=== PATIENT | female | born 1985 | race Two or more races ===

== ENCOUNTER → 2016-06-19 | Outpatient (REF) | payer BC ==
[2016-06-19 20:31] LABS: MEAN CORPUSCULAR HEMOGLOBIN 27.5 pg (27.0-33.0); MEAN CORPUSCULAR HGB CONC 32.3 g/dl (32.0-36.5); RED CELL DISTRIBUTION WIDTH 12.8 % (11.5-14.5); WHITE BLOOD COUNT 5.7 K/mm3 (4.0-10.0)
[2016-06-19 20:38] LABS: VITAMIN B12 LEVEL 742 PG/ML (247-911)
[2016-06-19 20:39] LABS: ALBUMIN/GLOBULIN RATIO 1.29 (1.00-1.93); ALKALINE PHOSPHATASE 114 U/L (45-117); ALT/SGPT 12 U/L (12-78); ANION GAP 8 MEQ/L (8-16); AST/SGOT 10 U/L (15-37); BILIRUBIN,TOTAL 0.3 MG/DL (0.2-1.0); BLOOD UREA NITROGEN 11 MG/DL (7-18); CALCIUM LEVEL 8.7 MG/DL (8.5-10.1); CARBON DIOXIDE LEVEL 29 MEQ/L (21-32); CHLORIDE LEVEL 104 MEQ/L (98-107); CHOLESTEROL LEVEL 173 MG/DL (<200); CREATININE FOR GFR 0.65 MG/DL (0.55-1.02); FERRITIN 17 NG/ML (8-252); FREE T4 0.99 NG/DL (0.76-1.46); GLOMERULAR FILTRATION RATE > 60.0 (>60); GLUCOSE, FASTING 101 MG/DL (70-105); POTASSIUM SERUM 3.7 MEQ/L (3.5-5.1); SODIUM LEVEL 141 MEQ/L (136-145); TOTAL PROTEIN 7.1 GM/DL (6.4-8.2); TRIGLYCERIDES LEVEL 118 MG/DL (<150)
== END ==
LOC: M SFHCADAM 12:20
PROVIDERS: ATTEND Family Medicine
DX: R10.12 Left upper quadrant pain (principal); Z98.84 Bariatric surgery status

== ENCOUNTER → 2016-06-19 | Outpatient (CLI) | payer BC ==
--- NOTE | 2016-06-19 14:32 | REP ---
Chest two views HISTORY: Left upper quadrant pain Comparison: None The lungs are clear. The heart is normal in size. The pulmonary vasculature is normal in appearance. The bony structure is intact. IMPRESSION: No acute disease. Signed by Eleuterio Singh MD 06/19/2016 02:23 P
--- NOTE | 2016-06-19 14:35 | REP ---
LUMBAR SPINE, FIVE VIEWS: HISTORY: Back pain. There is no acute fracture or subluxation. The L4-5 and L5-S1 intervertebral discs are decreased in height consistent with disc degeneration. The facet joints are normal in appearance. IMPRESSION: Degenerative change as described above. Signed by Eleuterio Singh MD 06/19/2016 02:38 P
== END ==
LOC: M ADAMS 13:24
PROVIDERS: ATTEND Family Medicine
DX: R10.12 Left upper quadrant pain (principal); M54.5 Low back pain; Z98.84 Bariatric surgery status

== ENCOUNTER 2017-04-13 12:41 | Emergency (ER) | payer BC ==
[2017-04-13] MEDS: NS 1,000 ML IV (13:36)
[2017-04-13 13:48] LABS: KETONE, URINE AUTO RFX NEGATIVE (NEGATIVE); LEUKOCYTE ESTERASE UR AUTO RFX NEGATIVE (NEGATIVE); MUCUS, URINE RFX SMALL (NEGATIVE); NITRITE, URINE AUTO RFX NEGATIVE (NEGATIVE); RBC, URINE AUTO RFX 1 /HPF (0-3); SPECIFIC GRAVITY UR AUTO RFX 1.023 (1.002-1.035); SQUAM EPITHELIAL CELL UR AURFX 0 /HPF (0-6); WBC, URINE AUTO RFX 0 /HPF (0-3)
[2017-04-13 13:51] LABS: BASO % 0.2 % (0.0-1.0); EOS # 0.1 10^3/uL (0.0-0.50); EOS % 1.6 % (0.0-3.0); LYMPH # 1.1 10^3/uL (1.5-4.5); MEAN CORPUSCULAR HEMOGLOBIN 26.7 pg (27.0-33.0); MEAN CORPUSCULAR HGB CONC 32.6 g/dl (32.0-36.5); MEAN CORPUSCULAR VOLUME 82.1 fl (80.0-96.0); MONO # 0.3 10^3/uL (0.0-0.8); MONO % 6.7 % (0.0-5.0); NEUTROPHILS % 66.5 % (36.0-66.0); PLATELET COUNT, AUTOMATED 132 10^3/uL (150-450); RED CELL DISTRIBUTION WIDTH 12.1 % (11.5-14.5); WHITE BLOOD COUNT 4.5 10^3/uL (4.0-10.0)
[2017-04-13 14:05] LABS: INR 0.89
[2017-04-13 14:23] LABS: ALBUMIN 3.9 GM/DL (3.2-5.2); ALBUMIN/GLOBULIN RATIO 1.08 (1.00-1.93); ALKALINE PHOSPHATASE 92 U/L (45-117); ALT/SGPT 16 U/L (12-78); AMYLASE 49 U/L (25-115); ANION GAP 6 MEQ/L (8-16); AST/SGOT 14 U/L (7-37); BILIRUBIN,DIRECT < 0.1 MG/DL (0.0-0.2); BILIRUBIN,TOTAL 0.2 MG/DL (0.2-1.0); BLOOD UREA NITROGEN 9 MG/DL (7-18); CALCIUM LEVEL 8.7 MG/DL (8.5-10.1); CARBON DIOXIDE LEVEL 31 MEQ/L (21-32); CHLORIDE LEVEL 105 MEQ/L (98-107); CREATININE FOR GFR 0.54 MG/DL (0.55-1.02); GLOMERULAR FILTRATION RATE > 60.0 (>60); GLUCOSE, FASTING 78 MG/DL (70-105); POTASSIUM SERUM 3.8 MEQ/L (3.5-5.1); SODIUM LEVEL 142 MEQ/L (136-145); TOTAL PROTEIN 7.5 GM/DL (6.4-8.2)
== END 2017-04-13 15:01 | disposition home or self-care (01) ==
LOC: M ED 12:41
DX: R16.1 Splenomegaly, not elsewhere classified (principal); R10.12 Left upper quadrant pain; R00.1 Bradycardia, unspecified; Z87.59 Personal history of other complications of pregnancy, childbirth and the puerperium; Z98.84 Bariatric surgery status
CPT/HCPCS: 76705

== ENCOUNTER → 2017-04-17 | Outpatient (REF) | payer BC ==
[2017-04-17 20:24] LABS: BASO % 0.5 % (0.0-1.0); EOS # 0.1 10^3/uL (0.0-0.50); EOS % 1.8 % (0.0-3.0); HEMATOCRIT 37.1 % (36.0-47.0); IMMATURE GRANULOCYTE % 0.5 % (0-0); LYMPH # 1.3 10^3/uL (1.5-4.5); LYMPH % 20.1 % (24.0-44.0); MEAN CORPUSCULAR HEMOGLOBIN 26.7 pg (27.0-33.0); MEAN CORPUSCULAR HGB CONC 32.3 g/dl (32.0-36.5); MEAN CORPUSCULAR VOLUME 82.4 fl (80.0-96.0); MONO # 0.3 10^3/uL (0.0-0.8); MONO % 4.8 % (0.0-5.0); NEUTROPHILS # 4.8 10^3/uL (1.8-7.7); NEUTROPHILS % 72.3 % (36.0-66.0); PLATELET COUNT, AUTOMATED 192 10^3/uL (150-450); RED CELL DISTRIBUTION WIDTH 11.9 % (11.5-14.5); RETIC HEMOGLOBIN EQUIVALENT 23.9 pg (24-36); RETICULOCYTE # 25.7 10^9/L (17-77); RETICULOCYTE % 0.6 % (0.5-1.5); WHITE BLOOD COUNT 6.6 10^3/uL (4.0-10.0)
[2017-04-17 20:46] LABS: ALBUMIN 3.6 GM/DL (3.2-5.2); ALBUMIN/GLOBULIN RATIO 1.03 (1.00-1.93); ALKALINE PHOSPHATASE 90 U/L (45-117); ALT/SGPT 12 U/L (12-78); ANION GAP 5 MEQ/L (8-16); AST/SGOT 13 U/L (7-37); BILIRUBIN,TOTAL 0.2 MG/DL (0.2-1.0); BLOOD UREA NITROGEN 11 MG/DL (7-18); CALCIUM LEVEL 8.6 MG/DL (8.5-10.1); CARBON DIOXIDE LEVEL 29 MEQ/L (21-32); CHLORIDE LEVEL 104 MEQ/L (98-107); CREATININE FOR GFR 0.54 MG/DL (0.55-1.02); GLOMERULAR FILTRATION RATE > 60.0 (>60); GLUCOSE, FASTING 99 MG/DL (70-105); POTASSIUM SERUM 4.3 MEQ/L (3.5-5.1); RHEUMATOID FACTOR QUANT < 10.0 IU/ML (0-15.0); SODIUM LEVEL 138 MEQ/L (136-145); TOTAL PROTEIN 7.1 GM/DL (6.4-8.2)
[2017-04-17 20:58] LABS: ERYTHROCYTE SEDIMENTATION RATE 45 mm/hr (0-20)
[2017-04-20 00:06] LABS: EBV VIRAL CAPSID AG IgM <36.0 U/mL (0.0-35.9)
[2017-04-20 00:06] LABS: ANA (HEP2) Negative (.); CYTOMEGALOVIRUS IgG ANTIBODY <0.60 U/mL (0.00-0.59); CYTOMEGALOVIRUS IgM ANTIBODY <30.0 AU/mL (0.0-29.9); EBV AB TO NUCLEAR ANTIGEN <18.0 U/mL (0.0-17.9)
== END ==
LOC: M SFHCADAM 16:17
DX: R16.1 Splenomegaly, not elsewhere classified (principal)
CPT/HCPCS: 80053

== ENCOUNTER → 2017-04-23 | Outpatient (REF) | payer BC ==
[2017-04-24 10:53] LABS: HEPATITIS B SURFACE ANTIGEN NEGATIVE (NEGATIVE)
[2017-04-24 11:10] LABS: HEPATITIS C VIRUS ABY INDEX 0.1 INDEX (<0.8)
[2017-04-24 11:11] LABS: HEPATITIS B CORE ANTIBODY IGM NEGATIVE (NEGATIVE)
[2017-04-24 11:12] LABS: HEPATITIS A ANTIBODY IGM NEGATIVE (NEGATIVE)
== END ==
LOC: M SFHCADAM 16:16
DX: R16.1 Splenomegaly, not elsewhere classified (principal)
CPT/HCPCS: 87340

== ENCOUNTER → 2017-05-14 | Outpatient (REF) | payer BC ==
[2017-05-14 13:41] LABS: URIC ACID 4.3 MG/DL (2.6-6.0)
== END ==
LOC: M LAB REF 12:41
DX: R16.1 Splenomegaly, not elsewhere classified (principal)
CPT/HCPCS: 84550

== ENCOUNTER → 2017-05-23 | Outpatient (CLI) | payer BC ==
[~2017-05-23] MED LIST: GASTROGRAFIN SOLUTION 30ML (Q9963) As Ordered; ISOVUE-370 76% 100ML VIAL (Q9967) As Ordered
== END ==
LOC: M RAD 09:09
DX: R16.1 Splenomegaly, not elsewhere classified (principal); R10.12 Left upper quadrant pain
CPT/HCPCS: Q9963

== ENCOUNTER → 2017-06-20 | Outpatient (REF) | payer BC ==
[2017-06-20 14:57] LABS: BASO % 0.7 % (0.0-1.0); EOS # 0.2 10^3/uL (0.0-0.50); EOS % 2.9 % (0.0-3.0); HEMOGLOBIN 11.2 g/dl (12.0-16.0); IMMATURE GRANULOCYTE % 0.2 % (0-3.0); LYMPH # 1.5 10^3/uL (1.5-4.5); LYMPH % 25.9 % (24.0-44.0); MEAN CORPUSCULAR HEMOGLOBIN 26.8 pg (27.0-33.0); MEAN CORPUSCULAR VOLUME 83.7 fl (80.0-96.0); MONO # 0.5 10^3/uL (0.0-0.8); NEUTROPHILS # 3.7 10^3/uL (1.8-7.7); NEUTROPHILS % 62.3 % (36.0-66.0); PLATELET COUNT, AUTOMATED 176 10^3/uL (150-450); RED BLOOD COUNT 4.18 10^6/uL (4.00-5.40); RED CELL DISTRIBUTION WIDTH 13.1 % (11.5-14.5); RETIC HEMOGLOBIN EQUIVALENT 28.6 pg (24-36); RETICULOCYTE # 42.2 10^9/L (17-77); WHITE BLOOD COUNT 5.9 10^3/uL (4.0-10.0)
[2017-06-20 15:22] LABS: ERYTHROCYTE SEDIMENTATION RATE 17 mm/hr (0-20)
[2017-06-20 15:49] LABS: RHEUMATOID FACTOR QUANT < 10.0 IU/ML (0-15.0)
[2017-06-20 15:52] LABS: ALBUMIN 3.9 GM/DL (3.2-5.2); ALBUMIN/GLOBULIN RATIO 1.34 (1.00-1.93); ALKALINE PHOSPHATASE 81 U/L (45-117); ALT/SGPT 13 U/L (12-78); ANION GAP 6 MEQ/L (8-16); AST/SGOT 13 U/L (7-37); BILIRUBIN,TOTAL 0.2 MG/DL (0.2-1.0); BLOOD UREA NITROGEN 12 MG/DL (7-18); CALCIUM LEVEL 8.4 MG/DL (8.5-10.1); CARBON DIOXIDE LEVEL 28 MEQ/L (21-32); CHLORIDE LEVEL 105 MEQ/L (98-107); CREATININE FOR GFR 0.53 MG/DL (0.55-1.30); GLOMERULAR FILTRATION RATE > 60.0 (>60); GLUCOSE, FASTING 78 MG/DL (70-100); POTASSIUM SERUM 4.2 MEQ/L (3.5-5.1); SODIUM LEVEL 139 MEQ/L (136-145); TOTAL PROTEIN 6.8 GM/DL (6.4-8.2)
[2017-06-23 00:08] LABS: ANA (HEP2) Negative (.); CYTOMEGALOVIRUS IgG ANTIBODY <0.60 U/mL (0.00-0.59); CYTOMEGALOVIRUS IgM ANTIBODY <30.0 AU/mL (0.0-29.9); EBV AB TO NUCLEAR ANTIGEN <18.0 U/mL (0.0-17.9)
[2017-06-23 00:08] LABS: EBV VIRAL CAPSID AG IgM <36.0 U/mL (0.0-35.9)
== END ==
LOC: M SFHCADAM 13:19
DX: R16.1 Splenomegaly, not elsewhere classified (principal); E55.9 Vitamin D deficiency, unspecified
CPT/HCPCS: 80053

== ENCOUNTER → 2017-07-01 | Outpatient (CLI) | payer BC | LOC: M RAD 15:45 | DX: R16.1 Splenomegaly, not elsewhere classified (principal) | CPT/HCPCS: Q9963 ==

== ENCOUNTER 2017-09-10 12:26 | Day surgery (SDC) | payer BC ==
[2017-09-10] MEDS: NS 1,000 ML IV (12:45)
[2017-09-10] MEDS ORDERED: PROPOFOL 200 MG/20 ML VIAL As Ordered (12:54)
[2017-09-10] MEDS ORDERED: LIDOCAINE 2% INJ 100 MG/5 ML SDV (FOR ANES.) As Ordered (12:55)
== END 2017-09-10 13:52 | disposition home or self-care (01) ==
LOC: M OPP 12:26
DX: R10.12 Left upper quadrant pain (principal); Z98.0 Intestinal bypass and anastomosis status; K31.89 Other diseases of stomach and duodenum; K63.3 Ulcer of intestine; D69.3 Immune thrombocytopenic purpura; Z98.84 Bariatric surgery status; R16.1 Splenomegaly, not elsewhere classified; Z79.899 Other long term (current) drug therapy; Z80.3 Family history of malignant neoplasm of breast; Z80.41 Family history of malignant neoplasm of ovary
CPT/HCPCS: 43239

== ENCOUNTER → 2018-03-18 | Outpatient (REF) | payer BC ==
[2018-03-18 20:36] LABS: HEMOGLOBIN 11.8 g/dl (12.0-15.5); MEAN CORPUSCULAR HEMOGLOBIN 25.8 pg (27.0-33.0); MEAN CORPUSCULAR HGB CONC 31.1 g/dl (32.0-36.5); MEAN CORPUSCULAR VOLUME 83.2 fl (80.0-96.0); PLATELET COUNT, AUTOMATED 164 10^3/uL (150-450); RED BLOOD COUNT 4.57 10^6/uL (4.00-5.40); RED CELL DISTRIBUTION WIDTH 13.2 % (11.5-14.5)
[2018-03-18 20:46] LABS: ANION GAP 6 MEQ/L (8-16); BLOOD UREA NITROGEN 13 MG/DL (7-18); CALCIUM LEVEL 8.8 MG/DL (8.5-10.1); CARBON DIOXIDE LEVEL 28 MEQ/L (21-32); CHLORIDE LEVEL 108 MEQ/L (98-107); CREATININE FOR GFR 0.66 MG/DL (0.55-1.30); FREE T4 0.88 NG/DL (0.76-1.46); GLOMERULAR FILTRATION RATE > 60.0 (>60); GLUCOSE, FASTING 78 MG/DL (70-100); POTASSIUM SERUM 4.6 MEQ/L (3.5-5.1); SODIUM LEVEL 142 MEQ/L (136-145)
== END ==
LOC: M SFHCADAM 13:42
DX: H93.A1 Pulsatile tinnitus, right ear (principal)
CPT/HCPCS: 84443

== ENCOUNTER → 2018-03-25 | Outpatient (CLI) | payer BC | LOC: M RAD 13:35 | DX: H93.A1 Pulsatile tinnitus, right ear (principal) | CPT/HCPCS: 93880 ==

== ENCOUNTER → 2020-05-03 | Outpatient (CLI) | payer BC, MEDICAID ==
[~2020-05-03] MED LIST changes: -GASTROGRAFIN SOLUTION 30ML (Q9963) As Ordered; +HYDR-3715 PO; -ISOVUE-370 76% 100ML VIAL (Q9967) As Ordered; +PANT40TA29 PO; +PRENTAB9 PO; +TYLE500T78 PO; +ZOFR4TAB14 PO
--- NOTE | 2020-05-04 10:11 | REP ---
INDICATION: LOW BACK PAIN COMPARISON: None. TECHNIQUE: AP, lateral, bilateral oblique, and coned-down views of the lumbar spine. FINDINGS: Alignment and lordosis maintained. Vertebral bodies are intact. No acute fracture/compression injury or subluxation. No obvious spondylolysis or spondylolisthesis.. Very minimal age-related degenerative changes include subtle increased sclerosis and subtle disc space narrowing at L5-S1 and L4-5. IMPRESSION: Very minimal disc space narrowing at L5-S1 and L4-5. <Electronically signed by Ilir Gilbert > 05/04/20 1007
== END ==
LOC: M ADAMS 13:35
PROVIDERS: ATTEND Physician Assistant
DX: M54.5 Low back pain (principal)

== ENCOUNTER 2020-12-12 18:03 | Emergency (ER) | payer BC, MEDICAID ==
[~2020-12-12] VITALS: Ht 170.2 cm; Wt 86.4 kg
[2020-12-12 18:04] VITALS: BP 124/77
[2020-12-12] MEDS ORDERED: MULT1TAB7 PO (18:26)
== END 2020-12-13 00:40 | disposition left against medical advice (07) ==
LOC: M ED 18:03
DX: Z53.21 Procedure and treatment not carried out due to patient leaving prior to being seen by health care provider (principal)

== ENCOUNTER 2021-11-18 02:50 | Emergency (ER) | payer BC, MEDICAID ==
[~2021-11-18] VITALS: Ht 170.2 cm; Wt 101.9 kg
[~2021-11-18 02:50] MED LIST changes: +MULT1TAB7 PO
[2021-11-18 02:51] VITALS: BP 122/84
== END 2021-11-18 05:30 | disposition left against medical advice (07) ==
LOC: M ED 02:50
DX: Z53.21 Procedure and treatment not carried out due to patient leaving prior to being seen by health care provider (principal)

== ENCOUNTER 2022-05-28 18:12 | Emergency (ER) | payer BC ==
[~2022-05-28] VITALS: Ht 170.2 cm; Wt 81.8 kg
[2022-05-28 18:14] VITALS: BP 121/76
[2022-05-28] MEDS ORDERED: [UNRECOGNIZED DRUG - CODE] PO (18:42)
== END 2022-05-28 21:50 | disposition left against medical advice (07) ==
LOC: M ED 18:12
DX: Z53.21 Procedure and treatment not carried out due to patient leaving prior to being seen by health care provider (principal)

== ENCOUNTER 2022-06-01 09:30 | Emergency (ER) | payer BC ==
[~2022-06-01] VITALS: Ht 170.2 cm; Wt 103.5 kg
[~2022-06-01 09:30] MED LIST changes: +[UNRECOGNIZED DRUG - CODE] PO
[2022-06-01 09:31] VITALS: BP 115/78
[2022-06-01 11:48] LABS: BASO % 0.6 % (0.0-1.0); EOS # 0.2 10^3/uL (0.0-0.5); HEMATOCRIT 38.3 % (36.0-47.0); HEMOGLOBIN 12.2 g/dl (12.0-15.5); LYMPH # 1.8 10^3/uL (1.5-5.0); MEAN CORPUSCULAR HEMOGLOBIN 25.8 pg (27.0-33.0); MEAN CORPUSCULAR HGB CONC 31.9 g/dl (32.0-36.5); MONO # 0.6 10^3/uL (0.0-0.8); MONO % 8.3 % (2.0-8.0); NEUTROPHILS # 4.2 10^3/uL (1.5-8.5); NEUTROPHILS % 61.8 % (36.0-66.0); PLATELET COUNT, AUTOMATED 223 10^3/uL (150-450); RED BLOOD COUNT 4.73 10^6/uL (4.00-5.40); WHITE BLOOD COUNT 6.8 10^3/uL (4.0-10.0)
[2022-06-01 12:04] LABS: INR 0.92; PROTHROMBIN TIME 12.6 SECONDS (12.5-14.5)
[2022-06-01 12:05] LABS: PARTIAL THROMBOPLASTIN TIME 24.1 SECONDS (24.8-34.2)
[2022-06-01 12:07] LABS: D-DIMER QUANT 441.97 ng/ml (<500)
[2022-06-01 12:10] LABS: LIPASE 28 U/L (12-53)
[2022-06-01 12:11] LABS: CPK CREATINE PHOSPHOKINASE 54 U/L (34-145)
[2022-06-01 12:16] LABS: ALBUMIN 3.7 G/DL (3.2-5.2); ALKALINE PHOSPHATASE 121 U/L (46-116); ALT/SGPT 14 U/L (7.0-40); AST/SGOT 18 U/L (<34); BILIRUBIN,DIRECT 0.1 MG/DL (<0.4); BILIRUBIN,TOTAL 0.4 MG/DL (0.3-1.2); BLOOD UREA NITROGEN 9 MG/DL (9-23); CALCIUM LEVEL 9.2 MG/DL (8.5-10.1); CARBON DIOXIDE LEVEL 26 MMOL/L (20-31); CHLORIDE LEVEL 105 MMOL/L (98-107); CK-MB VALUE MASS < 1.0 NG/ML (<3.6); CREATININE FOR GFR 0.66 MG/DL (0.55-1.30); GLOMERULAR FILTRATION RATE > 60.0 (>60); GLUCOSE, FASTING 85 MG/DL (60-100); MB/CK RELATIVE INDEX 1.85 (< OR =4); POTASSIUM SERUM 4.2 MMOL/L (3.5-5.1); SODIUM LEVEL 139 MMOL/L (136-145); TOTAL PROTEIN 6.8 G/DL (5.7-8.2)
== END 2022-06-01 14:08 | disposition home or self-care (01) ==
LOC: M ED 09:30
DX: R07.9 Chest pain, unspecified (principal); R22.32 Localized swelling, mass and lump, left upper limb; Z98.84 Bariatric surgery status; Z79.810 Long term (current) use of selective estrogen receptor modulators (SERMs); Z79.1 Long term (current) use of non-steroidal anti-inflammatories (NSAID)

== ENCOUNTER → 2022-12-31 | Outpatient (CLI) | payer BC, OTHER | LOC: M ADAMS 10:25 | PROVIDERS: ATTEND Family Medicine | DX: M54.50 Low back pain, unspecified (principal); M25.552 Pain in left hip; M16.12 Unilateral primary osteoarthritis, left hip; M51.36 Other intervertebral disc degeneration, lumbar region; M51.37 Other intervertebral disc degeneration, lumbosacral region ==

== ENCOUNTER → 2022-12-31 | Outpatient (REF) | payer BC ==
[2022-12-31 13:54] LABS: HEMATOCRIT 36.6 % (36.0-47.0); HEMOGLOBIN 11.4 g/dl (12.0-15.5); MEAN CORPUSCULAR HEMOGLOBIN 25.6 pg (27.0-33.0); MEAN CORPUSCULAR HGB CONC 31.1 g/dl (32.0-36.5); MEAN CORPUSCULAR VOLUME 82.1 fl (80.0-96.0); PLATELET COUNT, AUTOMATED 201 10^3/uL (150-450); RED BLOOD COUNT 4.46 10^6/uL (4.00-5.40); WHITE BLOOD COUNT 7.1 10^3/uL (4.0-10.0)
[2022-12-31 14:21] LABS: C REACTIVE PROTEIN QUANTITATIV < 0.40 MG/DL (<1.0)
[2022-12-31 14:23] LABS: ALBUMIN 3.6 G/DL (3.2-5.2); ALKALINE PHOSPHATASE 98 U/L (46-116); ALT/SGPT 18 U/L (7.0-40); AST/SGOT 13 U/L (<34); BILIRUBIN,TOTAL 0.4 MG/DL (0.3-1.2); BLOOD UREA NITROGEN 10 MG/DL (9-23); CALCIUM LEVEL 8.6 MG/DL (8.5-10.1); CARBON DIOXIDE LEVEL 28 MMOL/L (20-31); CHLORIDE LEVEL 106 MMOL/L (98-107); CREATININE FOR GFR 0.64 MG/DL (0.55-1.30); GLOMERULAR FILTRATION RATE > 60.0 (>60); GLUCOSE, FASTING 85 MG/DL (60-100); POTASSIUM SERUM 4.7 MMOL/L (3.5-5.1); SODIUM LEVEL 139 MMOL/L (136-145); TOTAL PROTEIN 6.6 G/DL (5.7-8.2)
== END ==
LOC: M SFHCADAM 09:43
PROVIDERS: ATTEND Family Medicine
DX: M54.50 Low back pain, unspecified (principal); M25.552 Pain in left hip